=== PATIENT | male | born 1965 | race American Indian/Alaskan Native ===

== ENCOUNTER 2017-02-10 04:11 | Emergency (ER) | payer SELFPAY ==
[2017-02-10] MEDS ORDERED: Albuterol-Ipratrop 3 mg / 0.5 (3 ml) UD ONE (04:16)
--- NOTE | 2017-02-10 04:31 | C.PDOC ---
History Of Present Illness 51 year old male who presents to the ER with a complaint of SOB, wheezing, and a productive cough with yellow sputum for the last 3-4 days. Patient states he has a Hx of asthma and notes this feels like his usual asthma exacerbation. Denies fever or chills. Time Seen by Provider: 02/10/17 04:22 Chief Complaint (Nursing): Shortness Of Breath History Per: Patient History/Exam Limitations: no limitations Onset/Duration Of Symptoms: Days Current Symptoms Are (Timing): Still Present Initiating Event: Upper Respiratory Illness Current Respiratory Medications: See Home Med List Associated Symptoms: Productive Cough. denies: Fever, Chills Recent travel outside of the [place]: No Past Medical History Reviewed: Historical Data, Nursing Documentation, Vital Signs Vital Signs: Last Vital Signs Temp 98.4 F 02/10/17 05:58 Pulse 94 H 02/10/17 05:58 Resp 16 02/10/17 05:58 BP 128/81 02/10/17 05:58 Pulse Ox 98 02/10/17 05:58 - Medical History PMH: No Chronic Diseases Surgical History: No Surg Hx Family History: States: Unknown Family Hx Review Of Systems Constitutional: Negative for: Fever, Chills Cardiovascular: Negative for: Chest Pain, Palpitations Respiratory: Positive for: Cough, Shortness of Breath, Sputum, Wheezing Gastrointestinal: Negative for: Nausea, Vomiting, Abdominal Pain Skin: Negative for: Rash Neurological: Negative for: Weakness, Numbness Physical Exam - Physical Exam Appears: Non-toxic Skin: Normal Color, Warm, Dry Head: Atraumatic, Normacephalic Oral Mucosa: Moist Chest: Symmetrical, No Tenderness Cardiovascular: Rhythm Regular, No Murmur Respiratory: Decreased Breath Sounds (Mildly), No Rales, No Rhonchi, Wheezing ( Mild, scattered) Gastrointestinal/Abdominal: Soft, No Tenderness Neurological/Psych: Oriented x3, Normal Speech, Normal Cognition, Other (No focal deficits) Medical Decision Making Medical Decision Making: EKG and CXR ordered. Duoneb and prednisone administered. EKG: Sinus tach 103, normal axis, no acute ischemia cxr- nad 545am the pt reports feeling "much better" after rx Disposition - Disposition Disposition: HOME/ ROUTINE Disposition Time: 06:00 Condition: IMPROVED Additional Instructions: Please follow up with your doctor. Return to the ER for any worsening symptoms or for any other concerns. Prescriptions: Albuterol 0.083% [Albuterol 0.083% Inhal Laura (2.5 mg/3 ml) UD] 2.5 mg IH Q6H PRN #20 neb PRN Reason: Wheezing Albuterol HFA [Ventolin HFA 90 mcg/actuation (8 g)] 1 - 2 puff IH Q6H PRN #1 inhaler PRN Reason: Wheezing Azithromycin 250 mg PO DAILY #6 tab Prednisone 50 mg PO DAILY #4 tablet Forms: General Discharge Instructions - Clinical Impression Clinical Impression: Asthma exacerbation - Scribe Statement The provider has reviewed the documentation as recorded by the Scribe Nicola Guzman All medical record entries made by the Kevinibe were at my direction and personally dictated by me. I have reviewed the chart and agree that the record accurately reflects my personal performance of the history, physical exam, medical decision making, and the department course for this patient. I have also personally directed, reviewed, and agree with the discharge instructions and disposition.
[2017-02-10] MEDS: Albuterol-Ipratrop 3 mg / 0.5 (3 ml) UD IH SCH ×3 (04:57→05:40)
[2017-02-10 05:59] VITALS: BP 128/81; PULSE 94; RESP 16; TEMP 98.4; O2SAT 98
--- NOTE | 2017-02-10 08:37 | RAD ---
HISTORY: cough sob COMPARISON: 08/22/2012 TECHNIQUE: Chest PA and lateral FINDINGS: LUNGS: Biapical pleural thickening. Status post median sternotomy. Prior valve replacement. Mild venous congestion. PLEURA: No significant pleural effusion identified. No pneumothorax apparent. CARDIOVASCULAR: Normal. OSSEOUS STRUCTURES: No significant abnormalities. VISUALIZED UPPER ABDOMEN: Normal. OTHER FINDINGS: None. IMPRESSION: Biapical pleural thickening. Status post median sternotomy. Prior valve replacement. Mild venous congestion.
--- NOTE | 2017-02-10 12:25 | CARD ---
APPROVED REPORT EKG Measurement Heart [id number] <Conclusion> Sinus tachycardia Biatrial enlargement Abnormal ECG
== END 2017-02-10 05:59 | disposition home or self-care (01) ==
LOC: C.ER 04:11
DX: J45.901 Unspecified asthma with (acute) exacerbation (principal)

== ENCOUNTER 2017-05-03 02:07 | Emergency (ER) | payer OTHER ==
[2017-05-03] MEDS ORDERED: Albuterol-Ipratrop 3 mg / 0.5 (3 ml) UD ONE ×2 (02:11→02:39)
[2017-05-03] MEDS ORDERED: Albuterol-Ipratrop 3 mg / 0.5 (3 ml) UD INH STA (02:21)
[2017-05-03] MEDS ORDERED: Sodium Chloride 0.9% 1,000 ML IV ONE (02:22)
--- NOTE | 2017-05-03 02:22 | C.PDOC ---
History Of Present Illness Pt states that his asthma has been "acting up" . worse today at work. Pt speaking in complete sentences. No f/c/n/v. No cp or palpitations Time Seen by Provider: 05/03/17 02:22 Chief Complaint (Nursing): Respiratory Distress History Per: Patient History/Exam Limitations: no limitations Onset/Duration Of Symptoms: Hrs Current Symptoms Are (Timing): Still Present Associated Symptoms: Dyspnea Preciptating Factors: None Severity: Moderate Pain Scale Rating Of: 4 Recent travel outside of the [place]: No Additional History Per: Patient - Asthma History Medication Use: PRN Rescue Medications: Short-acting Agonists Control Medications: None Past Medical History Reviewed: Historical Data, Nursing Documentation, Vital Signs Vital Signs: Last Vital Signs Temp 98 F 05/03/17 02:21 Pulse 90 05/03/17 02:17 Resp 16 05/03/17 02:21 BP 170/83 H 05/03/17 02:17 Pulse Ox 99 05/03/17 02:29 - Medical History PMH: Asthma, HTN Family History: States: No Known Family Hx - Social History Hx Alcohol Use: No Hx Substance Use: No - Immunization History Hx Tetanus Toxoid Vaccination: No Hx Influenza Vaccination: No Hx Pneumococcal Vaccination: Yes Review Of Systems Constitutional: Negative for: Fever, Chills Eyes: Negative for: Redness ENT: Negative for: Throat Pain Cardiovascular: Negative for: Chest Pain Respiratory: Positive for: Shortness of Breath, Wheezing Gastrointestinal: Negative for: Nausea, Vomiting, Abdominal Pain Genitourinary: Negative for: Dysuria Musculoskeletal: Negative for: Back Pain Skin: Negative for: Rash Neurological: Negative for: Weakness Psych: Negative for: Anxiety Physical Exam - Physical Exam Appears: Non-toxic Skin: Warm, Dry Head: Normacephalic Eye(s): bilateral: Normal Inspection Oral Mucosa: Moist Neck: Supple Chest: Symmetrical Cardiovascular: Rhythm Regular Respiratory: No Rales, No Rhonchi, Wheezing Gastrointestinal/Abdominal: Soft, No Tenderness, No Distention Back: Normal Inspection Extremity: Normal ROM Extremity: Bilateral: Atraumatic Pulses: Left Dorsalis Pedis: Normal, Right Dorsalis Pedis: Normal Neurological/Psych: Oriented x3, Normal Speech, Normal Cognition Gait: Steady ED Course And Treatment O2 Sat by Pulse Oximetry: 99 Pulse Ox Interpretation: Normal Reevaluation Time: 03:50 Reassessment Condition: Improved Disposition Counseled Patient/Family Regarding: Studies Performed, Diagnosis - Disposition Referrals: True Campbell MD [Primary Care Provider] - Disposition: HOME/ ROUTINE Disposition Time: 02:22 Condition: FAIR Prescriptions: Albuterol HFA [Ventolin HFA 90 mcg/actuation (8 g)] 2 puff IH [id number] #1 puff Prednisone [Deltasone] 20 mg PO DAILY #5 tablet Instructions: Asthma (DC) Forms: N42 (Setswana) - Clinical Impression Clinical Impression: Exacerbation of asthma
[2017-05-03 02:23] VITALS: RESP 16; TEMP 98
[2017-05-03] MEDS ORDERED: Sodium Chloride 0.9% 1,000 ML ONE (02:29)
[2017-05-03] MEDS: Albuterol-Ipratrop 3 mg / 0.5 (3 ml) UD IH SCH ×3 (02:38→03:00)
[2017-05-03 04:04] VITALS: BP 135/86; PULSE 87; O2SAT 100
[2017-05-03 04:08] LABS: BASO # 0.2 K/uL (0.0-0.2); EOS # 0.5 K/uL (0.0-0.7); EOS % 8.8 % (0.0-4.0); HEMATOCRIT 43.1 % (35.0-51.0); LYMPH # 1.1 K/uL (1.0-4.3); LYMPH % 20.4 % (20.0-40.0); MEAN CELL VOLUME 93.4 fL (80.0-94.0); MEAN CORPUSCULAR HGB CONC 33.2 g/dL (33.0-37.0); MEAN PLATELET VOLUME 8.4 fL (7.2-11.7); MONO # 0.4 K/uL (0.0-0.8); MONO % 8.1 % (0.0-10.0); RED CELL DISTRIBUTION WIDTH 13.2 % (11.5-14.5); WHITE BLOOD COUNT 5.4 K/uL (4.8-10.8)
[2017-05-03 04:10] LABS: INR 1.1
[2017-05-03 04:24] LABS: CHLORIDE 103 mmol/L (98-107); SODIUM 142 mmol/L (132-148)
[2017-05-03 04:25] LABS: POTASSIUM 4.6 mmol/L (3.6-5.2)
[2017-05-03 04:27] LABS: ALB/GLOB RATIO 1.2 (1.0-2.1); ALKALINE PHOSPHATASE 46 U/L (38-126); AST/SGOT 51 U/L (17-59); BILIRUBIN,TOTAL 1.1 mg/dL (0.2-1.3); BLOOD UREA NITROGEN 9 mg/dL (9-20); CARBON DIOXIDE 26 mmol/L (22-30); GFR AFRICAN-AMERICAN > 60; GLUCOSE,RANDOM 73 mg/dL (75-110); TOTAL PROTEIN 7.5 g/dL (6.3-8.3)
[2017-05-03 04:28] LABS: ALT/SGPT 54 U/L (21-72); CALCIUM 9.4 mg/dl (8.6-10.4)
== END 2017-05-03 04:04 | disposition home or self-care (01) ==
LOC: SUPCPDRO 02:07 → C.ER 02:07
DX: J45.901 Unspecified asthma with (acute) exacerbation (principal)
CPT/HCPCS: 80053; 85025; 85610; 96374; 99284; J2930; J7040